=== PATIENT | male | born 1950 | race Caucasian/White ===

== ENCOUNTER 2017-05-16 08:47 | Inpatient (IN) | payer BC ==
[2017-05-15 12:44] VITALS: BMI 23.8
[2017-05-16] VITALS (42 sets, daily range): BP systolic 86–131; BP diastolic 58–76; PULSE 44–67; RESP 10–20; Ht 172.7 cm; Wt 68.7 kg
[~2017-05-16] VITALS: Ht 172.7 cm; Wt 68.7 kg
[2017-05-16] MEDS: AMPHETAMINE XX SCH ×2 (01:47→13:30)
[2017-05-16] MEDS: [UNRECOGNIZED DRUG - OTHER] XX SCH ×2 (01:47→13:30)
[2017-05-16] MEDS: DEXTROAMPHETAMINE XX SCH ×2 (01:47→13:30)
[2017-05-16] MEDS: BUPIVACAINE 0.5% (SDV) 30 ML, morphine SULFATE (PF) 8 MG, EPINEPHrine 0.3 MG, KETOROLAC... IRR SCH ×14 (06:00→11:44)
--- NOTE | 2017-05-16 06:44 | HPN ---
Date/Time of Note Date/Time of Note DATE: 05/16/17 TIME: 06:44 Interval H&P Admission Note Pt. seen H&P reviewed: No system changes ASIA HANEY MD May 16, 2017 06:44
[~2017-05-16 08:47] MED LIST: CEFAZOLIN 1 GM INJ ONE; CEFAZOLIN 2 GM/50 ML (PMX) 50 ML IVPB ONE; DEXAMETHASONE 1 MG TAB PO ONE; GABAPENTIN 300 MG CAP PO ONE; GLYCOPYRROLATE 0.4 MG INJ ONE; LIDOCAINE 2% (SDV) 5 ML INJ ONE; NEOSTIGMINE 3 MG/3 ML SYRINGE ONE; PROPOFOL 200 MG INJ ONE; ROCURONIUM 50 MG INJ ONE; TRANEXAMIC ACID 1,000 MG in SOD CHLORIDE 0.9% 100 ML IVPB ONE; traMADol 50 MG TAB PO ONE
[2017-05-16] MEDS ORDERED: BENA5TAB2 PO (09:09)
[2017-05-16] MEDS ORDERED: RASA1TAB PO (09:09)
[2017-05-16] MEDS ORDERED: TRAZ50TA18 PO (09:10)
[2017-05-16] MEDS ORDERED: PROP60CA PO (09:10)
[2017-05-16] MEDS ORDERED: ADDE10 PO (09:12)
[2017-05-16] MEDS ORDERED: AMPH10CA7 PO (09:14)
[2017-05-16] MEDS ORDERED: POLYMYXIN/BACITRACIN 1L IRRIG ONE (10:08)
[2017-05-16] MEDS ORDERED: BUPIVACAINE 0.5%/EPI (SDV) 10 ML INJ ONE (10:08)
[2017-05-16] MEDS ORDERED: THROMBIN 5000 UNIT VIAL ONE (10:08)
[2017-05-16] MEDS ORDERED: CA CHLORIDE 10% 10 ML SYRINGE ONE (10:08)
[2017-05-16] MEDS ORDERED: traMADol 50 MG TAB ONE (10:24)
[2017-05-16] MEDS ORDERED: morphine SULFATE/PF (10 MG/10 ML) INJ ONE (10:56)
[2017-05-16] MEDS ORDERED: TRANEXAMIC ACID 1,000 MG in SOD CHLORIDE 0.9% 100 ML IV ONE ×2 (11:00→13:00)
[2017-05-16] MEDS ORDERED: MIDAZOLAM 1 MG/ML 2 ML INJ ONE (11:00)
[2017-05-16] MEDS ORDERED: FENTAnyl 50 MCG/ML VIAL ONE (11:01)
--- NOTE | 2017-05-16 12:57 | OPR ---
Date/Time of Note Date/Time of Note DATE: 05/16/17 TIME: 12:51 Operative Report Procedure Date: May 16, 2017 Preoperative Diagnosis Left hip primary osteoarthritis Postoperative Diagnosis 1 left hip primary osteoarthritis 2 left hip status post hip arthroscopy Operation Performed Revision of prior hip arthroscopy to left total hip replacement Surgeon: ASIA HANEY MD Cattle Producers: BRIGITTE ANDERSON MD Anesthesia: general, spinal Estimated Blood Loss: 200 - 250 ml's Pt Condition Post Procedure: stable Disposition: PACU Procedure Description HIDE AND SKIN FLESHING MACHINE OPERATOR SURGEON: Brigitte Anderson MD was asked to be present at my request as a result of the complexity associated with this procedure including positioning of the extremity, positioning of the instrumentation and protection of the neurovascular structures. In my opinion, the assistance offered by a library technician is insufficient and Dr. Anderson should be compensated for his time. PROCEDURE IN DETAIL: Following the administration of general endotracheal anesthesia supplemented with a spinal anesthetic, the patient was placed in the supine position. The bilateral lower extremities were then prepped and draped in the usual sterile fashion. A tank hoop bender radiograph was obtained for preliminary limb length and femoral size as well as acetabular size. A lateral incision was then made exposing the tensor fascia the fascia was incised the tensor was retracted laterally and the vessels were cauterized. Significant scar tissue was encountered over the anterior capsule secondary to the prior hip arthroscopic procedure. A capsulectomy was then performed and the femoral head was then evaluated severe arthritic changes were noted. A femoral head cut was then made in the appropriate degree of version and inclination. The acetabulum was then exposed capsulectomy and labral ectomy were completed. The central portion was then entered and serially reamed up to the 51 mm size. A Depuy [place] cup which is 52 mm in size with a standard liner was then fit into position with solid fixation. A 30 mm screw was used for additional fixation. Attention was then directed to the femur, the femur was exposed and prepared. The canal was entered and serially reamed up to the 12 mm size. A 12 mm Depuy [place] stem was then inserted with solid fixation. A standard femoral head which was ceramic was then inserted. The leg was taken through full range of motion with no evident instability. In addition, radiographs revealed excellent position with reproduction of the limb lengths within a millimeter. The wound was irrigated thoroughly. The wound was then closed in layers and a Prenio for the final cover. This was watertight. Estimated blood loss was procedure was 300 cc. Postoperative radiographs will be obtained in the recovery room. ASIA HANEY MD May 16, 2017 12:57
--- NOTE | 2017-05-16 12:58 | PDOCDIS ---
Discharge Instructions DIAGNOSIS Discharge Diagnosis Hip arthritis CONDITION Patient Condition: Good HOME CARE INSTRUCTIONS: Diet Instructions: Regular ACTIVITY: Activity Restrictions: Slowly Increase Activity Keep Limb Elevated Bathing Restrictions: Shower FOLLOW UP/APPOINTMENTS Follow-up Plan In 2 weeks in our office SCHOOL/WORK RELEASE May return to School/Work with: With Restrictions School/Work Release Comment: No hip extension for 6 weeks ASIA HANEY MD May 16, 2017 12:57
[2017-05-16] MEDS ORDERED: OXYCODONE/ACETAMINOPHEN (5/325) TAB PO PRN ×3 (13:00→13:30)
[2017-05-16] MEDS ORDERED: MAGNESIUM HYDROXIDE 30ML CUP PO PRN (13:00)
[2017-05-16] MEDS ORDERED: ZOLPIDEM 5 MG TAB PO PRN ×2 (13:00→13:30)
[2017-05-16] MEDS ORDERED: DIPHENHYDRAMINE 50 MG INJ IV PRN ×3 (13:00→13:30)
[2017-05-16] MEDS ORDERED: KETOROLAC 15 MG INJ IV PRN (13:00)
[2017-05-16] MEDS ORDERED: morphine 4 MG/ML VIAL IV PRN (13:00)
[2017-05-16] MEDS ORDERED: morphine 2 MG INJ IV PRN (13:00)
[2017-05-16] MEDS ORDERED: ONDANSETRON 4 MG INJ IV PRN ×3 (13:00→13:30)
[2017-05-16] MEDS ORDERED: ACETAMINOPHEN 500 MG TAB PO PRN (13:00)
[2017-05-16] MEDS ORDERED: FENTAnyl 50 MCG/ML VIAL IV PRN ×2 (13:30)
[2017-05-16] MEDS ORDERED: HYDROCODONE/APAP (5/325) TAB PO PRN (13:30)
[2017-05-16] MEDS ORDERED: HYDROmorphONE 1 MG/ML SYG IV PRN ×2 (13:30)
[2017-05-16] MEDS ORDERED: HYDROmorphONE (0.2 MG/ML) 10ML SYG IV PRN (13:30)
[2017-05-16] MEDS ORDERED: LABETALOL HCL 20MG INJ IV PRN (13:30)
[2017-05-16] MEDS ORDERED: NALOXONE (0.4 MG/ML) INJ IV PRN (13:30)
[2017-05-16] MEDS ORDERED: MEPERIDINE 25 MG INJ IV PRN (13:30)
[2017-05-16] MEDS ORDERED: hydrALAzine 20 MG INJ IV PRN (13:30)
[2017-05-16] MEDS ORDERED: EPHEDrine SULFATE 50 MG/5 ML SYG IV PRN (13:30)
[2017-05-16] MEDS ORDERED: KETOROLAC 30 MG INJ IV PRN (13:30)
[2017-05-16] MEDS: CEFAZOLIN 1 GM/50 ML (PMX) 50 ML IVPB SCH ×2 (13:36→21:27)
[2017-05-16] MEDS: LACTATED RINGER'S 1,000 ML IV SCH ×2 (14:04→23:45)
--- NOTE | 2017-05-16 14:20 | RADRPT ---
PROCEDURE: Intraoperative imaging of the left hip with fluoroscopy. CLINICAL INDICATION: Left hip pain. Intraoperative. TECHNIQUE: Four images of the left hip were obtained in the operating room with an image intensifi er. No radiologist was in attendance. 0.4 minutes of fluoroscopy time was used. COMPARISON: No prior study is available for comparison. FINDINGS: Images demonstrate placement of a total left hip arthroplasty. IMPRESSION: 1. Satisfactory intraoperative imaging of the left hip. RPTAT: QQ .Jonas Contreras MD, MD Date Time Electronically viewed and signed by .Jonas Contreras MD, on 05/16/2017 14:20 .R/
--- NOTE | 2017-05-16 15:49 | RADRPT ---
PROCEDURE: XR Pelvis. CLINICAL INDICATION: Pelvic pain. Postop. TECHNIQUE: Single frontal view. COMPARISON: None. FINDINGS: There is a left hip total arthroplasty. This appears satisfactory with no fracture, dislocation or loosening. There is no lytic lesion. The right hip is normal. There is a Palom[place] catheter in position. IMPRESSION: 1. Satisfactory postoperative appearance of the left hip. RPTAT: QQ .Jnoas Contreras MD, MD Date Time Electronically viewed and signed by .Jonas Contreras MD, on 05/16/2017 15:49 .R/
[2017-05-16] MEDS: DEXAMETHASONE 2 MG TAB PO SCH ×2 (18:45→23:41)
[2017-05-16 18:52] LABS: ADD SCAN DIFF NO
[2017-05-16 18:57] LABS: ABNORMAL IP MESSAGE 1; BASOPHIL # 0.1 10^3/ul (0.0-0.1); BASOPHILS % 0.4 % (0.0-2.0); EOSINOPHILS % 0.2 % (0.0-7.0); HEMATOCRIT 42.5 % (42.0-52.0); HEMOGLOBIN 13.4 g/dl (14.0-18.0); LYMPHOCYTES # 1.2 10^3/ul (0.8-2.9); LYMPHOCYTES % 7.7 % (15.0-51.0); MEAN CORPUSCULAR HEMOGLOBIN 31.7 pg (29.0-33.0); MEAN CORPUSCULAR HGB CONC 31.5 g/dl (32.0-37.0); MEAN CORPUSCULAR VOLUME 100.5 fl (82.0-101.0); MEAN PLATELET VOLUME 9.6 fl (7.4-10.4); MONOCYTE # 1.7 10^3/ul (0.3-0.9); MONOCYTES % 10.4 % (0.0-11.0); NEUTROPHIL # 12.9 10^3/ul (1.6-7.5); PLATELET COUNT 270 10^3/UL (140-415); RED BLOOD COUNT 4.23 10^6/ul (4.70-6.10); RED CELL DISTRIBUTION WIDTH 12.9 % (11.5-14.5); WHITE BLOOD COUNT 16.1 10^3/ul (4.8-10.8)
[2017-05-16] MEDS: BENAZEPRIL 5 MG TAB PO SCH (21:00)
[2017-05-16] MEDS: traZODone 50 MG TAB PO SCH (21:27)
[2017-05-16] MEDS: GABAPENTIN 300 MG CAP PO SCH (21:27)
[2017-05-16] MEDS: SENNA/DOCUSATE NA (8.6MG/50MG) TAB PO SCH (21:27)
[2017-05-17 00:08] VITALS: BP 119/66; RESP 20
[2017-05-17] MEDS: CEFAZOLIN 1 GM/50 ML (PMX) 50 ML IVPB SCH (04:48)
[2017-05-17] MEDS: AMPHETAMINE XX SCH ×2 (05:30→12:09)
[2017-05-17] MEDS: [UNRECOGNIZED DRUG - OTHER] XX SCH ×2 (05:30→12:09)
[2017-05-17] MEDS: DEXTROAMPHETAMINE XX SCH ×2 (05:30→12:09)
[2017-05-17 05:36] LABS: ADD SCAN DIFF NO
[2017-05-17 05:46] LABS: ABNORMAL IP MESSAGE 1; BASOPHILS % 0.2 % (0.0-2.0); EOSINOPHILS % 0.1 % (0.0-7.0); HEMATOCRIT 39.1 % (42.0-52.0); HEMOGLOBIN 12.3 g/dl (14.0-18.0); LYMPHOCYTES # 0.6 10^3/ul (0.8-2.9); LYMPHOCYTES % 3.7 % (15.0-51.0); MEAN CORPUSCULAR HEMOGLOBIN 31.3 pg (29.0-33.0); MEAN CORPUSCULAR HGB CONC 31.5 g/dl (32.0-37.0); MEAN CORPUSCULAR VOLUME 99.5 fl (82.0-101.0); MEAN PLATELET VOLUME 9.9 fl (7.4-10.4); MONOCYTE # 1.2 10^3/ul (0.3-0.9); MONOCYTES % 8.3 % (0.0-11.0); NEUTROPHIL # 12.8 10^3/ul (1.6-7.5); NEUTROPHILS % 86.8 % (39.0-77.0); PLATELET COUNT 254 10^3/UL (140-415); RED BLOOD COUNT 3.93 10^6/ul (4.70-6.10); RED CELL DISTRIBUTION WIDTH 12.9 % (11.5-14.5); WHITE BLOOD COUNT 14.7 10^3/ul (4.8-10.8)
[2017-05-17] MEDS: DEXAMETHASONE 2 MG TAB PO SCH ×2 (05:54→12:15)
[2017-05-17 05:59] VITALS: BP 108/63; PULSE 84; RESP 18
--- NOTE | 2017-05-17 06:54 | PN ---
Date/Time of Note Date/Time of Note DATE: 05/17/17 TIME: 06:53 24 hour Interval Summary Patient is awake and alert with no pain. Physical Exam Physical examination reveals that his wound is clean and dry. He is neurologically intact. There are no signs of DVT. The Palomino catheter still in place and will be removed this morning. Vital Signs Date Time Temp Pulse Resp B/P Pulse Ox O2 Delivery O2 Flow Rate FiO2 05/17/17 05:59 98.1 84 18 108/63 97 Room Air Intake and Output 05/16/17 05/16/17 05/17/17 15:00 23:00 07:00 Intake Total 1500 ml 950 ml 1550 ml Output Total 550 ml 400 ml 500 ml Balance 950 ml 550 ml 1050 ml VTE Prophylaxis VTE Prophylaxis Intervention: anti-embolic stocking Lines/Catheters IV Catheter Type: Saline Lock Palom[place] in Place: No Results Result Diagram: 05/17/17 0452 Results 24hrs Laboratory Tests Test 05/16/17 18:40 05/17/17 04:52 White Blood Count 16.1 H 14.7 H Red Blood Count 4.23 L 3.93 L Hemoglobin 13.4 L 12.3 L Hematocrit 42.5 39.1 L Mean Corpuscular Volume 100.5 99.5 Mean Corpuscular Hemoglobin 31.7 31.3 Mean Corpuscular Hemoglobin Concent 31.5 L 31.5 L Red Cell Distribution Width 12.9 12.9 Platelet Count 270 254 Mean Platelet Volume 9.6 9.9 Neutrophils % 80.0 H 86.8 H Lymphocytes % 7.7 L 3.7 L Monocytes % 10.4 8.3 Eosinophils % 0.2 0.1 Basophils % 0.4 0.2 Nucleated Red Blood Cells % 0.0 0.0 Neutrophils # 12.9 H 12.8 H Lymphocytes # 1.2 0.6 L Monocytes # 1.7 H 1.2 H Eosinophils # 0.0 0.0 Basophils # 0.1 0.0 Nucleated Red Blood Cells # 0.0 0.0 Assessment/Plan Assessment/Plan Assessment: Status post total hip replacement with good outcome thus far. He will be discharged once his physical therapy clears him. Medications Medications Home Meds Reported Medications Amphet Wxl-Cnvmiv-K-Amphet (Adderall XR) 10 Mg Cap.sr.24h, 10 MG PO DAILY, CAP 05/16/17 Trazodone Hcl* (Trazodone Hcl*) 50 Mg Tablet, 50 MG PO QHS, #30 TAB 05/16/17 Propranolol Hcl* (Propranolol Hcl*) 60 Mg Cap.sa.24h, 60 MG PO DAILY, TAB 05/16/17 Rasagiline Mesylate* (Azilect*) 1 Mg Tablet, 1 MG PO QAM, TAB 05/16/17 Benazepril Hcl* (Benazepril Hcl*) 5 Mg Tablet, 2.5 MG PO BID, #60 TAB 05/16/17 Discontinued Reported Medications Dextroamphetamine-Amphetamine (Adderall) 10 Mg Tab, 10 MG PO QAM, TAB 05/16/17 ASIA HANEY MD May 17, 2017 06:54
--- NOTE | 2017-05-17 06:56 | DS ---
Date/Time of Note Date/Time of Note DATE: 05/17/17 TIME: 06:54 Discharge Summary Admission/Discharge Info Admit Date/Time May 16, 2017 at 08:47 Discharge Date/Time May 17, 2017 following clearance by physical therapy Discharge Diagnosis Hip arthritis Patient Condition: Good Procedures Left total hip replacement Hx of Present Illness Pain and stiffness following hip arthroscopy with progression of arthritis Hospital Course Patient was admitted and underwent an uncomplicated total hip replacement. Postoperative day #1 he was afebrile stable and discharged Home Meds Reported Medications Amphet Fyy-Jejxnx-F-Amphet (Adderall XR) 10 Mg Cap.sr.24h, 10 MG PO DAILY, CAP 05/16/17 Trazodone Hcl* (Trazodone Hcl*) 50 Mg Tablet, 50 MG PO QHS, #30 TAB 05/16/17 Propranolol Hcl* (Propranolol Hcl*) 60 Mg Cap.sa.24h, 60 MG PO DAILY, TAB 05/16/17 Rasagiline Mesylate* (Azilect*) 1 Mg Tablet, 1 MG PO QAM, TAB 05/16/17 Benazepril Hcl* (Benazepril Hcl*) 5 Mg Tablet, 2.5 MG PO BID, #60 TAB 05/16/17 Discontinued Reported Medications Dextroamphetamine-Amphetamine (Adderall) 10 Mg Tab, 10 MG PO QAM, TAB 05/16/17 Follow-up Plan 2 weeks Primary Care Provider Not On Staff Doctor Pending Labs Laboratory Tests Test 05/16/17 18:40 05/17/17 04:52 White Blood Count 16.110^3/ul (4.8-10.8) 14.710^3/ul (4.8-10.8) Red Blood Count 4.2310^6/ul (4.70-6.10) 3.9310^6/ul (4.70-6.10) Hemoglobin 13.4g/dl (14.0-18.0) 12.3g/dl (14.0-18.0) Hematocrit 42.5% (42.0-52.0) 39.1% (42.0-52.0) Mean Corpuscular Volume 100.5fl (82.0-101.0) 99.5fl (82.0-101.0) Mean Corpuscular Hemoglobin 31.7pg (29.0-33.0) 31.3pg (29.0-33.0) Mean Corpuscular Hemoglobin Concent 31.5g/dl (32.0-37.0) 31.5g/dl (32.0-37.0) Red Cell Distribution Width 12.9% (11.5-14.5) 12.9% (11.5-14.5) Platelet Count 09539^3/UL (140-415) 39857^3/UL (140-415) Mean Platelet Volume 9.6fl (7.4-10.4) 9.9fl (7.4-10.4) Neutrophils % 80.0% (39.0-77.0) 86.8% (39.0-77.0) Lymphocytes % 7.7% (15.0-51.0) 3.7% (15.0-51.0) Monocytes % 10.4% (0.0-11.0) 8.3% (0.0-11.0) Eosinophils % 0.2% (0.0-7.0) 0.1% (0.0-7.0) Basophils % 0.4% (0.0-2.0) 0.2% (0.0-2.0) Nucleated Red Blood Cells % 0.0/100WBC (0.0-0.0) 0.0/100WBC (0.0-0.0) Neutrophils # 12.910^3/ul (1.6-7.5) 12.810^3/ul (1.6-7.5) Lymphocytes # 1.210^3/ul (0.8-2.9) 0.610^3/ul (0.8-2.9) Monocytes # 1.710^3/ul (0.3-0.9) 1.210^3/ul (0.3-0.9) Eosinophils # 0.010^3/ul (0.0-0.5) 0.010^3/ul (0.0-0.5) Basophils # 0.110^3/ul (0.0-0.1) 0.010^3/ul (0.0-0.1) Nucleated Red Blood Cells # 0.010^3/ul (0.0-0.0) 0.010^3/ul (0.0-0.0) ASIA HANEY MD May 17, 2017 06:55
[2017-05-17 08:23] VITALS: BP 118/68; RESP 18
[2017-05-17] MEDS: LACTATED RINGER'S 1,000 ML IV SCH ×2 (08:48→17:14)
[2017-05-17] MEDS ORDERED: AMPHET ASP AMPHET D AMPHET 10 MG PO SCH (09:00)
[2017-05-17] MEDS: PROPRANOLOL (LA) 60 MG CAP PO SCH (09:00)
[2017-05-17] MEDS: RASAGILINE MESYLATE 1 MG TAB PO SCH (09:01)
[2017-05-17] MEDS: SENNA/DOCUSATE NA (8.6MG/50MG) TAB PO SCH ×2 (09:02→20:34)
[2017-05-17] MEDS: ASPIRIN 81 MG TAB PO SCH (09:02)
[2017-05-17] MEDS: BETHANECHOL 25 MG TAB PO PRN ×2 (09:02→14:38)
[2017-05-17] MEDS: BENAZEPRIL 5 MG TAB PO SCH ×2 (09:05→20:41)
[2017-05-17] MEDS: OXYCODONE/ACETAMINOPHEN (5/325) TAB PO PRN ×3 (10:00→18:18)
--- NOTE | 2017-05-17 16:44 | OPPN ---
Date/Time of Note Date/Time of Note DATE: 05/17/17 TIME: 16:41 Anesthesia Follow up Anesthesia Follow up Last documented vital signs Vital Signs Date Time Temp Pulse Resp B/P Pulse Ox O2 Delivery O2 Flow Rate FiO2 05/17/17 08:23 98.2 89 18 118/68 95 05/17/17 05:59 Room Air Respiratory function: WNL Cardiovascular function: WNL Comments post op day one status post left total hip replacement. Pt with intrathecal duramorph for post operative pain management. No complaints. Post operative pain adequately controlled. Satisfactory recovery from anesthesia and intrathecal morphine pain management. ANGELI OLVERA May 17, 2017 16:44
[2017-05-17 20:06] VITALS: BP 114/69; RESP 18
[2017-05-17] MEDS: GABAPENTIN 300 MG CAP PO SCH (20:34)
[2017-05-17] MEDS: traZODone 50 MG TAB PO SCH (20:34)
[2017-05-17] MEDS ORDERED: TAMSULOSIN (SR) 0.4 MG CAP PO SCH (21:00)
[2017-05-18] MEDS: LACTATED RINGER'S 1,000 ML IV SCH (04:48)
[2017-05-18 07:00] VITALS: BP 131/68; RESP 18
[2017-05-18] MEDS: RASAGILINE MESYLATE 1 MG TAB PO SCH (09:20)
[2017-05-18] MEDS: PROPRANOLOL (LA) 60 MG CAP PO SCH (09:20)
[2017-05-18] MEDS: BENAZEPRIL 5 MG TAB PO SCH (09:21)
[2017-05-18] MEDS: SENNA/DOCUSATE NA (8.6MG/50MG) TAB PO SCH (09:21)
[2017-05-18] MEDS: ASPIRIN 81 MG TAB PO SCH (09:21)
[2017-05-18] MEDS: OXYCODONE/ACETAMINOPHEN (5/325) TAB PO PRN (09:21)
--- NOTE | 2017-05-18 10:09 | PN ---
Date/Time of Note Date/Time of Note DATE: 05/18/17 TIME: 10:06 Assessment/Plan VTE Prophylaxis VTE Prophylaxis Intervention: anti-embolic stocking, SCD's, other Lines/Catheters IV Catheter Type (from Nrs): Saline Lock Urinary Cath still in place: No Assessment/Plan Assessment/Plan POD#2 s/p L DEENA - Continue dvt ppx - asa for home - ok to d/c home today Subjective 24 Hr Interval Summary Free Text/Dictation Doing well. Working well with PT, up walking and doing stairs. Pain controlled, wanting to go home. Exam/Review of Systems Vital Signs Vitals Vital Signs Date Time Temp Pulse Resp B/P Pulse Ox O2 Delivery O2 Flow Rate FiO2 05/18/17 07:00 98.0 87 18 131/68 97 05/17/17 05:59 Room Air Intake and Output 05/17/17 05/17/17 05/18/17 15:00 23:00 07:00 Intake Total 200 ml 1540 ml 720 ml Output Total 800 ml 800 ml Balance 200 ml 740 ml -80 ml Exam LLE: incision/dressing is c/d/i. NVI distally L4-S1. wwp. calf soft/nontender. Results Result Diagram: 05/17/17 0452 Medications Medications Current Medications Benazepril HCl (Lotensin) 2.5 mg BID PO Last administered on 05/18/17 09:21; Admin Dose 2.5 MG; Start 05/16/17 at 21:00 Propranolol HCl (Inderal La) 60 mg DAILY PO Last administered on 05/18/17 09: 20; Admin Dose 60 MG; Start 05/17/17 at 09:00 Rasagiline (Azilect) 1 mg QAM PO Last administered on 05/18/17 09:20; Admin Dose 1 MG; Start 05/17/17 at 09:00 Trazodone HCl (Desyrel) 50 mg QHS PO Last administered on 05/17/17 20:34; Admin Dose 50 MG; Start 05/16/17 at 21:00 Senna/Docusate Sodium (Senokot-S) 1 tab BID PO Last administered on 05/18/17 09:21; Admin Dose 1 TAB; Start 05/16/17 at 21:00 Simethicone (Mylicon) 80 mg TID PRN PO DISTENSION/GAS/BLOATING; Start 05/16/17 at 13:00 Magnesium Hydroxide (Milk Of Mag) 30 ml BID PRN PO CONSTIPATION; Start at 13:00 Acetaminophen (Tylenol Tab) 1,000 mg Q4H PRN PO TEMP GREATER THAN 100.4F; Start 05/16/17 at 13:00 Gabapentin (Neurontin) 300 mg HS PO Last administered on 05/17/17 20:34; Admin Dose 300 MG; Start 05/16/17 at 21:00 Oxycodone/ Acetaminophen (Percocet (5/ 325)) 1 tab Q4H PRN PO PAIN LEVEL 1-5 Last administered on 05/18/17 09:21; Admin Dose 1 TAB; Start 05/16/17 at 13:00 Oxycodone/ Acetaminophen (Percocet (5/ 325)) 2 tab Q4H PRN PO PAIN LEVEL 6-10 Last administered on 05/17/17 23:46; Admin Dose 2 TAB; Start 05/16/17 at 13:00 Morphine Sulfate (morphine) 2 mg Q2H PRN IV PAIN LEVEL 1-5; Start 05/16/17 at 13:00 Morphine Sulfate (morphine) 4 mg Q4H PRN IV PAIN LEVEL 6-10; Start 05/16/17 at 13:00 Aspirin 81 mg 81 mg DAILY PO Last administered on 05/18/17 09:21; Admin Dose 81 MG; Start 05/17/17 at 09:00 Lactated Ringer's (Lr) 1,000 ml @ 100 mls/hr Q10H IV Last administered on 05/16 23:45; Admin Dose 100 MLS/HR; Start 05/16/17 at 12:48 Ketorolac Tromethamine (Toradol) 30 mg Q6H PRN IV PAIN LEVEL 6-10; Start at 13:30; Stop 05/19/17 at 13:29 Acetaminophen/ Hydrocodone Bitart ([place] (5/325)) 1 tab Q4H PRN PO PAIN LEVEL 4 -6; Start 05/16/17 at 13:30 Diphenhydramine HCl (Benadryl) 25 mg Q4H PRN IV PRURITUS; Start 05/16/17 at 13: 30 Ondansetron HCl (Zofran Inj) 4 mg Q6H PRN IV NAUSEA AND/OR VOMITING; Start at 13:30 Tamsulosin HCl (Flomax) 0.4 mg HS PO Last administered on 05/17/17t 20:34; Admin Dose 0.4 MG; Start 05/17/17 at 21:00 BRIGITTE PHILIP MD May 18, 2017 10:09
[2017-05-18] MEDS ORDERED: CHLORPROMAZINE 25 MG INJ IM ONE (10:30)
== END 2017-05-18 11:12 | disposition home or self-care (01) | DRG 470 ==
LOC: REC 08:47 → MS1 16:15
PROVIDERS: ADMIT Orthopaedic Surgery; ATTEND Orthopaedic Surgery
PROC: 0SRB04A Replacement of Left Hip Joint with Ceramic on Polyethylene Synthetic Substitute, Uncemented, Open Approach (ICD-10-PCS; principal; 2017-05-16 12:00)
DX: M16.12 Unilateral primary osteoarthritis, left hip (principal)
CPT/HCPCS: 72170; 73530; 85025; 97116; 97163; 97530; C1713; C1776; J0171; J0690; J0735; J1885; J2250; J2274; J2710; J3010; J3230; J3370; J7120